=== PATIENT | male | born 1995 | race Caucasian/White ===

== ENCOUNTER 2017-01-17 12:56 | Observation (INO) | payer OTHER ==
[2017-01-17] MEDS ORDERED: NS 1,000 ML IV ONE (13:10)
--- NOTE | 2017-01-17 13:34 | EDPHY ---
H & P Time Seen by Provider: 01/17/17 13:05 HPI/ROS: CHIEF COMPLAINT: Abdominal pain HISTORY OF PRESENT ILLNESS: 21-year-old male presents with right lower quadrant pain. He was awakened from sleep at 3:00 a.m. this morning because moderate right lower quadrant pain. The pain was 7/10 and persistent. The pain has been waxing and waning since then and is currently mild. Pain radiates to his groin. Associated with nausea and lack of appetite. No prior similar symptoms. No prior abdominal surgery. 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 Moderate alcohol Smoking Status: Never smoked Physical Exam: General Appearance: Alert, pleasant Eyes: Pupils equal and round, no conjunctival pallor or injection ENT, Mouth: Mucous membranes moist Neck: Normal inspection Respiratory: Lungs are clear to auscultation Cardiovascular: Regular rate and rhythm Gastrointestinal: Abdomen is soft, right lower quadrant tenderness Neurological: A&O, nonfocal, normal gait Skin: Warm and dry, no rash Extremities: Nontender, no pedal edema Psychiatric: Mood and affect normal Constitutional: Initial Vital Signs Temperature (C) 36.9 C 01/17/17 13:00 Heart Rate 86 01/17/17 13:00 Respiratory Rate 169 H 01/17/17 13:00 Blood Pressure 128/88 H 01/17/17 13:00 O2 Sat (%) 95 01/17/17 13:00 O2 Delivery Mode Room Air Allergies/Adverse Reactions: No Known Allergies Allergy (Unverified 01/17/17 12:59) Home Medications: Medication Instructions Recorded NK [No Known Home Meds] 01/17/17 Medical Decision Making - Diagnostics Imaging Results: Imaging Impressions Abdomen/Pelvis CT 01/17/17 13:34 Impression: 1. There is no evidence of nephroureterolithiasis although there is mild asymmetric prominence of the right ureter likely secondary to inflammation in the retroperitoneum associated with appendicitis and periappendiceal inflammation. 2. There is serpentine-shaped structure in the anteromedial right lower lobe seen adjacent to a 1.7 x 2.1 cm hypodense partially-calcified structure noted adjacent to the right posterior lateral margin of the esophagus. These features could represent some focal venous varices, although cannot be further assessed. Consider follow-up dual phase helical CT imaging of the chest during arterial and portal venous phases (after consumption of oral contrast as well). Attention: This CT examination is specifically designed to evaluate patients who are clinically suspected of having acute obstructive uropathy. This examination does not use radiographic contrast, and as such, provides only a limited evaluation of the abdomen, pelvis, and retroperitoneum. If there is further clinical suspicion for pathological conditions other than obstructive uropathy, a complete CT evaluation of the abdomen and pelvis utilizing intravenous, oral, and rectal contrast should be considered. Findings and recommendations were discussed with YEYO SALOMON MD at 15:04, on 01/17/2017. ED Course/Re-evaluation: This patient presents with acute right lower quadrant pain, concerning for acute appendicitis versus kidney stone. He currently refuses pain medication. I will order a stat CT scan without contrast to further evaluate the cause of his acute pain. CT scan results discussed with the patient, including the abnormal findings in the chest. Invanz 1 g IV given for acute appendicitis. Continues to decline pain medication. Dr. Joni Orellana was consulted and saw the patient in the emergency department. He will follow up with his primary care physician for a CT scan of the chest with oral and IV contrast. A copy of his CT scan report was given to him. Differential Diagnosis: Differential diagnosis includes though it is not limited to appendicitis, cholecystitis, diverticulitis, pyelonephritis, bowel perforation, small bowel obstruction. - Data Points Laboratory Results: Laboratory Results 01/17/17 13:25 01/17/17 13:25 01/17/17 01/17/17 01/17/17 14:00 13:25 13:25 WBC 8.97 10^3/uL 10^3/uL (3.80-9.50) RBC 5.28 10^6/uL 10^6/uL (4.40-6.38) Hgb 16.5 g/dL g/dL (13.7-17.5) Hct 46.5 % % (40.0-51.0) MCV 88.1 fL fL (81.5-99.8) MCH 31.3 pg pg (27.9-34.1) MCHC 35.5 g/dL g/dL (32.4-36.7) RDW 12.0 % % (11.5-15.2) Plt Count 319 10^3/uL 10^3/uL (150-400) MPV 10.0 fL fL (8.7-11.7) Neut % (Auto) 66.2 % % (39.3-74.2) Lymph % (Auto) 27.5 % % (15.0-45.0) [place] % (Auto) 5.7 % % (4.5-13.0) Eos % (Auto) 0.1 % L % (0.6-7.6) Baso % (Auto) 0.3 % % (0.3-1.7) Nucleat RBC Rel Count 0.0 % % (0.0-0.2) Absolute Neuts (auto) 5.93 10^3/uL 10^3/uL (1.70-6.50) Absolute Lymphs (auto) 2.47 10^3/uL 10^3/uL (1.00-3.00) Absolute Monos (auto) 0.51 10^3/uL 10^3/uL (0.30-0.80) Absolute Eos (auto) 0.01 10^3/uL L 10^3/uL (0.03-0.40) Absolute Basos (auto) 0.03 10^3/uL 10^3/uL (0.02-0.10) Absolute Nucleated RBC 0.00 10^3/uL 10^3/uL (0-0.01) Immature Gran % 0.2 % % (0.0-1.1) Immature Gran # 0.02 10^3/uL 10^3/uL (0.00-0.10) Sodium 142 mEq/L mEq/L (134-144) Potassium 3.8 mEq/L mEq/L (3.5-5.2) Chloride 102 mEq/L mEq/L (97-110) Carbon Dioxide 25 mEq/l mEq/l (22-31) Anion Gap 15 mEq/L mEq/L (8-16) BUN 12 mg/dL mg/dL (7-23) Creatinine 1.0 mg/dL mg/dL (0.7-1.3) Estimated GFR > 60 Glucose 88 mg/dL mg/dL (70-100) Calcium 10.3 mg/dL mg/dL (8.5-10.4) Urine Color PALE YELLOW Urine Appearance CLEAR Urine pH 7.0 (5.0-7.5) Ur Specific [place] 1.008 (1.002-1.030) Urine Protein NEGATIVE (NEGATIVE) Urine Ketones NEGATIVE (NEGATIVE) Urine Blood NEGATIVE (NEGATIVE) Urine Nitrate NEGATIVE (NEGATIVE) Urine Bilirubin NEGATIVE (NEGATIVE) Urine Urobilinogen NEGATIVE EU EU (0.2-1.0) Ur Leukocyte Esterase NEGATIVE (NEGATIVE) Urine Glucose NEGATIVE (NEGATIVE) Medications Given: Discontinued Medications Sodium Chloride (Ns) 1,000 mls @ 0 mls/hr IV ONCE ONE PRN Reason: Wide Open Stop: 01/17/17 13:11 Last Admin: 01/17/17 13:15 Dose: 1,000 mls Ertapenem 1 gm/ Sodium (Chloride) 100 mls @ 200 mls/hr IV EDNOW ONE PRN Reason: Protocol Stop: 01/17/17 15:41 Last Admin: 01/17/17 15:36 Dose: 100 mls Departure - Departure Disposition: [facility] Inpatient Acute Clinical Impression: Acute appendicitis Qualifiers: Acute appendicitis type: with localized peritonitis Qualified Code(s): K35.3 - Acute appendicitis with localized peritonitis Condition: Good
[2017-01-17 13:37] LABS: % IMMATURE GRANULYOCYTES 0.2 % (0.0-1.1); ABSOLUTE IMMATURE GRANULOCYTES 0.02 10^3/uL (0.00-0.10); ADD DIFF? NO; ADD MORPH? NO; ADD SCAN? NO; ATYPICAL LYMPHOCYTE FLAG 0 (0-99); FRAGMENT RBC FLAG 0 (0-99); HEMATOCRIT 46.5 % (40.0-51.0); HEMOGLOBIN 16.5 g/dL (13.7-17.5); LEFT SHIFT FLG 0 (0-99); LIPEMIA HEMOLYSIS FLAG 90 (0-99); MEAN CELL HEMOGLOBIN 31.3 pg (27.9-34.1); MEAN CELL HEMOGLOBIN CONCENTR. 35.5 g/dL (32.4-36.7); MEAN CELL VOLUME 88.1 fL (81.5-99.8); PLATELET CLUMPS FLAG 10 (0-99); PLATELET COUNT 319 10^3/uL (150-400); RED BLOOD CELL COUNT 5.28 10^6/uL (4.40-6.38)
[2017-01-17 14:04] LABS: ANION GAP 15 mEq/L (8-16); CALCIUM 10.3 mg/dL (8.5-10.4); CARBON DIOXIDE 25 mEq/l (22-31); CHLORIDE 102 mEq/L (97-110); GLOMERULAR FILTRATION RATE > 60; GLUCOSE 88 mg/dL (70-100); POTASSIUM 3.8 mEq/L (3.5-5.2); SODIUM 142 mEq/L (134-144)
[2017-01-17 14:12] LABS: COLOR PALE YELLOW; LEUKOCYTE ESTERASE,URINE NEGATIVE (NEGATIVE); NITRITE,URINE NEGATIVE (NEGATIVE)
[2017-01-17] MEDS ORDERED: ERTAPENEM 1 GM in NS 100 ML IV ONE (15:12)
[2017-01-17] MEDS ORDERED: BUPIVACAINE/EPI 0.5% 30 ML SDV ONE (16:25)
[2017-01-17] MEDS ORDERED: MIDAZOLAM 2 MG/2 ML VIAL ONE (17:48)
[2017-01-17] MEDS ORDERED: fentaNYL 100 MCG/2 ML INJ ONE ×3 (17:52→19:05)
[2017-01-17] MEDS ORDERED: PROPOFOL 200 MG/20 ML VIAL ONE (17:54)
[2017-01-17] MEDS ORDERED: ROCURONIUM 50 MG/5 ML VIAL ONE (18:04)
[2017-01-17] MEDS ORDERED: DEXAMETHASONE 4 MG/ML VIAL ONE (18:04)
[2017-01-17] MEDS ORDERED: KETOROLAC 30 MG/1 ML SDV ONE (18:23)
[2017-01-17] MEDS ORDERED: SUGAMMADEX SODIUM 200 MG/2 ML VIAL IVP ONE (18:23)
[2017-01-17] MEDS ORDERED: ONDANSETRON 4 MG/2 ML VIAL ONE (18:23)
[2017-01-17] MEDS ORDERED: HYDROCODONE/APAP 5/325 TAB PO PRN (18:52)
[2017-01-17] MEDS ORDERED: ONDANSETRON 4 MG/2 ML VIAL IVP PRN (18:52)
--- NOTE | 2017-01-17 18:52 | POSTOPPROG ---
Post Op Note Date of Operation: 01/17/17 Surgeon: Joni Orellana Anesthesia: GET(General Endotracheal) Pre-op Diagnosis: acute appy Post-op Diagnosis: same Indication: appendicitis Procedure: lap appy Findings: appendicitis Inf/Abcess present in the surg proc area at time of surgery?: No EBL: Minimal Complications: none
[2017-01-17] MEDS ORDERED: LR 1,000 ML IV SCH (19:00)
[2017-01-17] MEDS ORDERED: HYDROmorphONE/DILAUDID 1 MG/ML SYR ONE (19:05)
--- NOTE | 2017-01-17 19:14 | GOP ---
[f rep st] OPERATIVE REPORT DATE OF OPERATION: SURGEON: Joni Orellana MD PREOPERATIVE DIAGNOSIS: Acute appendicitis. POSTOPERATIVE DIAGNOSIS: Acute appendicitis. PROCEDURE PERFORMED: Laparoscopic appendectomy. FINDINGS: INDICATIONS: Patient with a clinical picture of acute appendicitis, positive CT scan. DESCRIPTION OF PROCEDURE: Under general anesthetic, the abdomen was scrubbed with ChloraPrep, drape d in the usual sterile fashion. An infraumbilical incision made. A Veress needle used to achieve a pneumoperitoneum. Two 5 mm ports were placed elsewhere. The viscera were examined. The appendix was obviously inflamed. The mesoappendix was harvested with the Harmonic Scalpel, and when the cecu m was identified, the appendix was amputated flush on the base of the cecum with an Endo-OLGA 30 blue cartridge. Minor bleeding points on the suture line were controlled with the Harmonic Scalpel. Th ere was no bleeding. The appendix was placed in an Endopouch and extracted. Gas was vented from th e abdomen, and the fascial defect at the umbilicus closed with 0 Vicryl, skin with 4-0 Monocryl and Dermabond. Patient tolerated the procedure well. /[id number]/MODL
[2017-01-17] MEDS: IBUPROFEN 600 MG TAB PO SCH (21:03)
[2017-01-18 04:36] VITALS: RESP 16; TEMP 97.7
[2017-01-18] MEDS: IBUPROFEN 600 MG TAB PO SCH (04:48)
[2017-01-18 08:37] VITALS: BP 112/58; PULSE 98; O2SAT 99
== END 2017-01-18 10:00 | disposition home or self-care (01) ==
LOC: F3E 19:34
PROVIDERS: ADMIT Surgery; ATTEND Surgery
PROC: 0DTJ4ZZ Resection of Appendix, Percutaneous Endoscopic Approach (ICD-10-PCS; principal; 2017-01-17 16:30)
DX: K35.3 Acute appendicitis with localized peritonitis (principal)
CPT/HCPCS: 44970; 74176; 96361; 96374; 99285; G0378; J1100; J1170; J1335; J1885; J2250; J2405; J2704; J3010

== ENCOUNTER → 2017-02-08 | Outpatient (CLI) | payer OTHER ==
[~2017-02-08] MED LIST: IOPAMIDOL (ISOVUE-300) 100 ML BTL ONE
== END ==
LOC: FIMAGING 08:16
PROVIDERS: ATTEND Surgery
DX: K22.8 Other specified diseases of esophagus (principal); J98.4 Other disorders of lung
CPT/HCPCS: Q9967

== ENCOUNTER → 2018-02-08 | Outpatient (CLI) | payer OTHER | LOC: FIMAGING 15:12 | PROVIDERS: ATTEND Surgery | DX: K22.8 Other specified diseases of esophagus (principal); R91.8 Other nonspecific abnormal finding of lung field | CPT/HCPCS: Q9967 ==